=== PATIENT | female | born 1950 | race Caucasian/White ===

== ENCOUNTER 2018-01-08 16:50 | Observation (INO) | payer MEDICARE ==
[2018-01-08 17:30] LABS: Band 1 % (5-11); Eosinophils 1 % (0-10); Hemoglobin 15.2 g/dL (12.0-16.0); Lymphocytes 15 % (21-51); MDiff Complete? YES; Mean Corpuscular HGB CONC 34.6 g/dL (32.0-36.0); Mean Corpuscular Hemoglobin 28.6 pg (27.0-31.0); Mean Corpuscular Volume 82.7 fL (78.0-98.0); Mean Platelet Volume 7.8 fL (7.4-10.4); Monocytes 7 % (0-10); Neutrophil 76 % (42-75); PLT Morphology Comment Appears Adequate; Platelet Count 255 thou/uL (130-400); RBC Distribution Width 11.3 % (11.5-14.5); Red Blood Cell (RBC) Count 5.31 mill/uL (4.20-5.40); White Blood Cell (WBC) Count 11.5 thou/uL (4.8-10.8)
[2018-01-08 17:37] LABS: ALT (SGPT) 40 U/L (8-55); AST (SGOT) 28 U/L (5-34); Alkaline Phosphatase 126 U/L (40-150); Anion Gap 18 mmol/L (10-20); BUN (Urea Nitrogen) 18 mg/dL (9.8-20.1); Bilirubin, Total 0.5 mg/dL (0.2-1.2); Calc. Creatinine Clearance 0 mL/min (70-130); Calcium 10.1 mg/dL (7.8-10.44); Carbon Dioxide 20 mmol/L (23-31); Chloride 97 mmol/L (98-107); Estimated GFR-MDRD 30; Magnesium 1.9 mg/dL (1.6-2.6); Potassium 4.3 mmol/L (3.5-5.1); Sodium 131 mmol/L (136-145)
[2018-01-08 17:38] LABS: CKMB 0.9 ng/mL (0-6.6); Troponin I Less than 0.010 ng/mL (< 0.028)
[2018-01-08 17:46] LABS: Glucose 643 mg/dL (80-115)
[2018-01-08] MEDS ORDERED: Insulin Regular 300 UNITS/3 ML VIAL ONE (18:02)
[2018-01-08 18:17] LABS: Bilirubin Negative (Negative); Blood, Urine Negative (Negative); Clarity Slightly Cloudy (Clear); Glucose, Urine (Dipstick) >=1000 mg/dL (Negative); Leukocyte Negative (Negative); Nitrite Negative (Negative); Protein, Urine (Dipstick) Negative (Neg-Trace); Urobilinogen 0.2 mg/dL (0.2-1.0); pH, Urine 5.5 (5.0-9.0)
[2018-01-08] MEDS ORDERED: Sodium Chloride 0.9% 1,000 ML IV SCH ×2 (21:15→22:20)
[2018-01-08] MEDS ORDERED: Dextrose 5% in Water 1,000 ML IV PRN (21:36)
[2018-01-08] MEDS ORDERED: Dextrose 50% Abboject 50 ML SYRINGE IVP PRN (21:36)
[2018-01-08 21:59] VITALS: BMI 38.5
[2018-01-08 22:13] LABS: Anion Gap 14 mmol/L (10-20); BUN (Urea Nitrogen) 17 mg/dL (9.8-20.1); Calc. Creatinine Clearance 77 mL/min (70-130); Calcium 8.8 mg/dL (7.8-10.44); Carbon Dioxide 20 mmol/L (23-31); Chloride 102 mmol/L (98-107); Estimated GFR-MDRD 42; Glucose 411 mg/dL (80-115); Potassium 4.3 mmol/L (3.5-5.1); Sodium 132 mmol/L (136-145)
[2018-01-08] MEDS: Insulin Regular 300 UNITS/3 ML VIAL SC PRN (22:20)
[2018-01-08] MEDS ORDERED: Ondansetron HCl/PF 4 MG/2 ML Vial IVP PRN (22:21)
[2018-01-08] MEDS ORDERED: Acetaminophen 325 MG TAB PO PRN (22:21)
--- NOTE | 2018-01-09 03:34 | HP-2 ---
CODE STATUS: This patient is FULL CODE. TIME OF EVALUATION: 10:35 p.m. PRIMARY CARE PHYSICIAN: Ricky Powers M.D. CHIEF COMPLAINT: Dysuria, dry mouth, increased thirst, HISTORY OF PRESENT ILLNESS: This is a 67-year-old female patient with past medical history of no sig nificant medical problems. The patient came to the hospital after having dry mouth, nausea, associat ed with dizziness, increase in urination, the patient reported that the symptoms have been moderate, had no clear , no alleviating factors. She was found to have very high blood sugar, for that re ason, she was sent to our hospital given the case of new onset diabetes. REVIEW OF SYSTEMS: Constitutional: No fever, no chills. Generalized weakness. Respiratory: No co ugh, no sputum production or shortness of breath. Cardiovascular: No chest pain, palpitation, short ness of breath. Gastrointestinal: No nausea, vomiting, diarrhea, abdominal pain. ACETYLENE TORCH BURNER: No dizziness , headache or feeling lightheaded. Genitourinary: No burning on urination. Extremities: No leg sw elling. All other systems were reviewed and negative except for the findings mentioned above. PAST MEDICAL HISTORY: No significant past medical history. SOCIAL HISTORY: She lives with family. PSYCHIATRIC HISTORY: No psych history. PAST SURGICAL HISTORY: Hysterectomy, tonsillectomy, nephrectomy. SOCIAL HISTORY: No drug use. No smoking. FAMILY HISTORY: Mother CVA; father with diabetes and CABG. ALLERGIES: Known allergies to EGGS, GLUTEN, IODINE, SULFA, WHEAT. REPORTED MEDICATIONS: None. PHYSICAL EXAMINATION: VITAL SIGNS: On presentation, blood pressure 141/68, heart rate 107, respiratory rate was 18, temper ature 98.4, oxygen saturation 95 on room air. GENERAL APPEARANCE: Alert, oriented, in no acute distress, no thyromegaly. HEENT: Oral mucosa anicteric. NECK: No JVD. RESPIRATORY: Bilateral air entry. No rales, no wheezing. Symmetric expansion. CARDIOVASCULAR: Normal rate, regular rhythm, no gallop. No edema. ABDOMEN: Soft, normal bowel sounds. MUSCULOSKELETAL: Baseline range of motion and strength. No tenderness. SKIN: Warm and intact. No pallor or rash. HEME/LYMPH: No redness. NEUROLOGIC: Baseline sensory. No evidence of any new focal weakness. Baseline speech. Cranial ner ves sensory intact. PSYCHIATRIC: The patient is in a good mood. No anxiety, oriented of her judgment. LABORATORY DATA: Reviewed. The patient has a white count of 11.5, hemoglobin 15.2, MCV 82, platelet count 255. Chemistry was done. The patient has a sodium 131, potassium 4.3, carbon dioxide initial ly was 20, anion gap 14, BUN 17, creatinine 1.26; when compared with the last one that we have on rec ord was 0.77, is significantly increased. LFTs were negative. Blood sugar 411. Urine was done and was negative. Beta hydroxybutyrate was 1.62 on initial presentation. EKG was reviewed. Patient has sinus tachycardia at the rate of 101. No other specific findings to r ule in acute coronary syndrome. ASSESSMENT AND PLAN: The patient will be placed in the hospital for the following medical problems. 1. New onset diabetes. The patient never had a diagnosis before, blood sugar was in the 400-500, jiang s been started on insulin, diabetic diet, patient has been advised regarding diabetes. We will need to follow as outpatient with her primary care doctor for further management and medication adjustment . 2. Obesity: weight. 3. Deep venous thrombosis prophylaxis. 4. Acute kidney injury likely secondary to dehydration, we will continue IV fluids, monitor for kidn ey function in the morning. As noted, the patient has a history of nephrectomy due to renal cell car cinoma.
[2018-01-09 05:29] LABS: Anion Gap 12 mmol/L (10-20); BUN (Urea Nitrogen) 15 mg/dL (9.8-20.1); Calc. Creatinine Clearance 80 mL/min (70-130); Calcium 8.4 mg/dL (7.8-10.44); Carbon Dioxide 22 mmol/L (23-31); Chloride 105 mmol/L (98-107); Estimated GFR-MDRD 45; Glucose 326 mg/dL (80-115); Sodium 135 mmol/L (136-145)
[2018-01-09 05:36] LABS: #Eosinphils 0.4 thou/uL (0.0-0.7); #Lymphocytes 1.5 thou/uL (1.20-3.40); #Monocytes 0.6 thou/uL (0.11-0.59); #Neutrophils 6.4 thou/uL (1.40-6.50); %Basophils 0.5 % (0.0-1.0); %Eosinophils 4.9 % (0.0-10.0); %Lymphocytes 16.7 % (21.0-51.0); %Monocytes 6.7 % (0.0-10.0); %Neutrophils 71.3 % (42.0-75.0); Mean Corpuscular HGB CONC 33.9 g/dL (32.0-36.0); Mean Corpuscular Hemoglobin 29.5 pg (27.0-31.0); Mean Corpuscular Volume 87.1 fL (78.0-98.0); Mean Platelet Volume 7.4 fL (7.4-10.4); Platelet Count 216 thou/uL (130-400); RBC Distribution Width 11.9 % (11.5-14.5)
[2018-01-09] MEDS: Insulin Regular 300 UNITS/3 ML VIAL SC PRN ×4 (05:58→21:09)
[2018-01-09] MEDS ORDERED: Loratadine 10 MG TAB PO PRN (06:32)
[2018-01-09] MEDS ORDERED: Aspirin/APAP/Caffeine Tab (Excedrin Migraine) PO SCH (06:45)
[2018-01-09] MEDS ORDERED: Loratadine 10 MG TAB PO SCH (06:45)
[2018-01-09] MEDS: Enoxaparin Sodium 40 MG/0.4 ML SYRINGE SC SCH (08:26)
[2018-01-09] MEDS ORDERED: glyBURIDE 5 MG TAB PO SCH (09:30)
[2018-01-09] MEDS: Sodium Chloride 0.9% 1,000 ML IV SCH ×2 (09:57→16:51)
--- NOTE | 2018-01-09 12:14 | PDOC.PN ---
- Subjective Encounter Start Date: 01/09/18 Encounter Start Time: 07:00 Pt seen for followup re: acute renal failure. Denies chest pain, shortness of breath, fevers or chills. - Objective MAR Reviewed: Yes Vital Signs & Weight: Vital Signs (12 hours) Temp Pulse Resp BP Pulse Ox 01/09/18 11:10 98.4 F 84 16 163/78 H 94 L 01/09/18 07:55 98.7 F 80 16 01/09/18 07:22 98.0 F 78 12 172/85 H 95 01/09/18 04:12 98.7 F 80 16 139/68 93 L Weight Weight 253 lb 9.6 oz I&O: 01/08/18 01/09/18 01/10/18 06:59 06:59 06:59 Intake Total 1435 450 Output Total 1300 Balance 135 450 Result Diagrams: 01/09/18 04:37 01/09/18 04:37 Additional Labs: Accuchecks 01/09/18 01/09/18 01/08/18 10:32 05:57 21:02 POC Glucose 391 H 275 H 373 H 01/08/18 20:24 POC Glucose 397 H EKG Reviewed by me: Yes (Tele: NSR) Phys Exam - Physical Examination Obese HEENT: moist MMs, sclera anicteric, oral pharynx no lesions, 2+ tonsils Neck: no nodes, no JVD, supple, full ROM Respiratory: no wheezing, no rales, no rhonchi, clear to auscultation bilateral Cardiovascular: RRR, no rub S1, S2 Gastrointestinal: soft, non-tender, no distention, positive bowel sounds Neurological: moves all 4 limbs Psychiatric: normal affect, A&O x 3 Dx/Plan (1) AMANUEL (acute kidney injury) Code(s): N17.9 - ACUTE KIDNEY FAILURE, UNSPECIFIED Status: Acute Comment: Improving, continue IV fluids (2) DM2 (diabetes mellitus, type 2) Status: Acute Comment: new diagnosis. Start glyburide. Continue accuchecks and insulin sliding scale. (3) Hyponatremia Code(s): E87.1 - HYPO-OSMOLALITY AND HYPONATREMIA Status: Acute Comment: Improving (4) H/O renal cell cancer Code(s): Z85.528 - PERSONAL HISTORY OF OTHER MALIGNANT NEOPLASM OF KIDNEY Status: Chronic Comment: s/p nephrectomy - Plan * . Review of Systems - Review of Systems Constitutional: negative: fever, chills, sweats, weakness, malaise Respiratory: negative: Cough, Shortness of Breath, SOB with Excertion, Pleuritic Pain, Wheezing Cardiovascular: negative: chest pain, palpitations, orthopnea, paroxysmal nocturnal dyspnea, edema, light headedness Gastrointestinal: negative: Nausea, Vomiting, Abdominal Pain, Diarrhea, Constipation, Melena, Hematochezia Genitourinary: negative: Dysuria, Frequency, Incontinence, Hematuria, Retention Skin: negative: Rash, Lesions, Dov, Bruising - Medications/Allergies Allergies/Adverse Reactions: Allergies Allergy/AdvReac Type Severity Reaction Status Date / Time Sulfa (Sulfonamide Allergy Unknown Verified 01/08/18 21:54 Antibiotics) gluten Allergy Verified 01/08/18 21:54 iodine Allergy Rash Verified 01/08/18 21:54 wheat Allergy Verified 01/08/18 21:54 Medications: Current Medications Acetaminophen (Tylenol) 650 mg PO Q4H PRN PRN Reason: Headache/Fever or Pain Acetaminophen/Aspirin/Caffeine (Excedrin Migraine) 2 tab PO DAILYPRN PRN PRN Reason: .HEADACHE Dextrose/Water (Dextrose 50%) 25 gm IVP PRN PRN PRN Reason: HYPOGLYCEMIA PROTOCOL Enoxaparin Sodium (Lovenox) 40 mg SC 0900 [facility] Last Admin: 01/09/18 08:26 Dose: 40 mg Glucagon (Glucagon) 1 mg IM PRN PRN PRN Reason: HYPOGLYCEMIA PROTOCOL Glyburide (Diabeta) 5 mg PO QAM-[facility] Dextrose/Water (D5w) 1,000 mls @ 0 mls/hr IV INF PRN; As Directed PRN Reason: HYPOGLYCEMIA PROTOCOL Sodium Chloride (Normal Saline 0.9%) 1,000 mls @ 100 mls/hr IV .Q10H [facility] Last Admin: 01/09/18 09:57 Dose: 1,000 mls Insulin Human Regular (Humulin R) 0 units SC .MILD SLIDING PRN; Protocol PRN Reason: MILD SLIDING SCALE Last Admin: 01/09/18 10:52 Dose: 6 unit Loratadine (Claritin) 10 mg PO DAILYPRN PRN PRN Reason: ALLERGIES Ondansetron HCl (Zofran) 4 mg IVP Q6H PRN PRN Reason: Nausea/Vomiting
[2018-01-09 13:00] LABS: Hemoglobin A1c 11.4 % (4.0-6.0)
[2018-01-09] MEDS ORDERED: hydrALAZINE 20 MG/ML VIAL SLOW IVP PRN (15:12)
[2018-01-09] MEDS ORDERED: PROVENTIL INHALER 6.7 G (200 INHALATIONS) INH PRN (16:37)
[2018-01-10] MEDS: Sodium Chloride 0.9% 1,000 ML IV SCH ×2 (04:22→17:08)
[2018-01-10] MEDS: Aspirin/APAP/Caffeine Tab (Excedrin Migraine) PO PRN (04:40)
[2018-01-10] MEDS: Insulin Regular 300 UNITS/3 ML VIAL SC PRN ×5 (06:17→21:36)
[2018-01-10] MEDS ORDERED: glyBURIDE 5 MG TAB PO SCH (08:00)
[2018-01-10] MEDS: Enoxaparin Sodium 40 MG/0.4 ML SYRINGE SC SCH (08:32)
--- NOTE | 2018-01-10 12:01 | PRG ---
DATE OF SERVICE: 01/10/2018 SUBJECTIVE: The patient is seen and examined at the bedside. She feels significantly better, but sh e noticed her skin is very wrinkled and dry. OBJECTIVE: VITAL SIGNS: Blood pressure is 151/73, temperature is 98.7, pulse is 72, respiratory rate is 18, O2 saturation is 91% on room air. GENERAL: She is an obese lady. Her weight is 253 pounds. HEENT: Her head is atraumatic, normocephalic. Her eyes are PERRLA. Sclerae nonicteric. Oral mucos a is dry. NECK: Supple, no lymphadenopathy. Thyroid is not palpable. LUNGS: Clear. HEART: S1, S2 normal, no S3, no S4, no any murmur. ABDOMEN: Obese, soft, nontender, bowel sounds are present, no organomegaly. EXTREMITIES: No clubbing, cyanosis or edema. NEUROLOGIC: She is alert and oriented x4. There is not any sensory or motor deficits present. Cran ial nerves are intact. LABORATORY DATA: Showed glycemia is ranging from 206 to 391. IMPRESSION: 1. New onset diabetes mellitus type 2. 2. Acute kidney injury, improving with IV and oral fluid intakes. 3. Hyponatremia, improving. 4. History of renal cell cancer, status post nephrectomy. PLAN: I am going to obtain chemistry panel this morning. We will continue her IV fluids. We will e ncourage her to drink more water. She had her dietitian consult done already. She will start making some lifestyle changes after she is discharged. I am going to increase her dose of glyburide to 5 m g twice a day and will continue Accu-Cheks a.c. and at bedtime and cover with mild sliding scale.
[2018-01-10 12:09] LABS: Anion Gap 13 mmol/L (10-20); BUN (Urea Nitrogen) 11 mg/dL (9.8-20.1); Calc. Creatinine Clearance 92 mL/min (70-130); Calcium 9.4 mg/dL (7.8-10.44); Carbon Dioxide 24 mmol/L (23-31); Chloride 104 mmol/L (98-107); Estimated GFR-MDRD 52; Glucose 311 mg/dL (80-115); Potassium 3.8 mmol/L (3.5-5.1); Sodium 137 mmol/L (136-145)
[2018-01-10] MEDS: glyBURIDE 5 MG TAB PO SCH (17:14)
[2018-01-11] MEDS: Insulin Regular 300 UNITS/3 ML VIAL SC PRN ×2 (05:43→10:44)
[2018-01-11 07:51] VITALS: BP 165/83; TEMP 98.3
[2018-01-11] MEDS: glyBURIDE 5 MG TAB PO SCH (08:36)
[2018-01-11] MEDS: Enoxaparin Sodium 40 MG/0.4 ML SYRINGE SC SCH (08:36)
[2018-01-11] MEDS: Aspirin/APAP/Caffeine Tab (Excedrin Migraine) PO PRN (09:24)
[2018-01-11] MEDS: Sodium Chloride 0.9% 1,000 ML IV SCH (10:15)
--- NOTE | 2018-01-11 10:36 | DIS ---
DATE OF ADMISSION: 01/08/2018 DATE OF DISCHARGE: 01/11/2018 DISCHARGE DIAGNOSES: 1. New onset diabetes mellitus type 2. 2. Hyperglycemia. 3. Pseudohyponatremia. 4. Acute kidney injury secondary to dehydration. 5. Polyuria secondary to hyperglycemia. 6. History of renal cell cancer. CONSULTATIONS: Dietary for diabetic education. PROCEDURES: None. HISTORY AND PHYSICAL: Ms. Wilburn is a 67-year-old female who presented to the emergency department f or evaluation on 01/08/2018 for dizziness. She was found to be hyperglycemic with a sugar in the 600 s. She was given 2 liters normal saline with resolution of her dizziness and 5 units of IV insulin. We were called for admission. HOSPITAL COURSE: The patient was seen and examined by Dr. Link and placed in observation. Sugars deysi ckly became under control. The patient underwent diabetic education. Initial creatinine on admissio n was 1.67, with an unknown baseline, last known to be 0.77 in 2013. Within 5 hours, repeat creatini ne was down to 1.26. The patient received IV fluids overnight with improvement down to 1.20 and on 0 01/10/2018 was down to 1.05. Sugars became under better control, but not ideal. The sugar was around 200 range. The patient was increased on her glyburide from 5 mg in the morning to 5 mg b.i.d. before meals and watched overnight until today. Today, she is feeling better, stable for discharge with outpatient followup, has an appointment with Dr. Powers tomorrow. PHYSICAL EXAMINATION: The patient was seen and examined on the day of discharge. Discharge plan and disposition was discussed with the patient face to face at the bedside. DISCHARGE MEDICATIONS: 1. Glyburide 5 mg p.o. b.i.d. New prescription sent. 2. Ventolin inhaler 2 puffs inhaled q.6 hours p.r.n. shortness of breath. FOLLOWUP: Follow up appointment with Dr. Powers tomorrow at 2:30 p.m., the patient has already made . DISCHARGE DIET: Diabetic, heart healthy diet recommended. DISCHARGE CONDITION: Stable. DISPOSITION: She will be discharged home via a private vehicle. DISCHARGE ACTIVITY: As tolerated.
== END 2018-01-11 11:14 | disposition home or self-care (01) ==
LOC: SCSER 16:50 → 2SW 18:55
PROVIDERS: ADMIT Internal Medicine; ATTEND Internal Medicine
DX: E11.65 Type 2 diabetes mellitus with hyperglycemia (principal); E87.1 Hypo-osmolality and hyponatremia; N17.9 Acute kidney failure, unspecified; E66.9 Obesity, unspecified; Z85.528 Personal history of other malignant neoplasm of kidney; Z91.041 Radiographic dye allergy status; Z91.012 Allergy to eggs; Z88.2 Allergy status to sulfonamides; Z91.018 Allergy to other foods; Z79.899 Other long term (current) drug therapy; Z68.38 Body mass index [BMI] 38.0-38.9, adult
CPT/HCPCS: 80048 ×3; 80053; 81003; 82010; 82553; 82962 ×4; 83036; 83735; 84484; 85025 ×2; 93005; 96361 ×4; 96372 ×3; 96374; 96375; 99285; G0378 ×2; 36415; 36416; J0360; J1650; J1815